=== PATIENT | male | born 1990 | race Caucasian/White ===

== ENCOUNTER 2022-05-06 19:17 | Emergency (ER) | payer OTHER ==
[~2022-05-06] VITALS: Ht 182.9 cm; Wt 120.2 kg
[~2022-05-06 19:17] MED LIST: HYDACE5 PO
== END 2022-05-06 20:37 | disposition home or self-care (01) ==
LOC: ER 19:17
DX: M62.838 Other muscle spasm (principal); M79.652 Pain in left thigh; Z88.0 Allergy status to penicillin
CPT/HCPCS: J1885